=== PATIENT | male | born 1990 | race Caucasian/White ===

== ENCOUNTER → 2017-04-14 | Emergency (ER) | payer OTHER ==
[~2017-04-14] VITALS: Ht 185.4 cm; Wt 86.2 kg
[~2017-04-14] MED LIST: HUMALOG100 UNIT/1; LANTUS SOL100 UNIT/1
== END | disposition home or self-care (01) ==
LOC: ER 11:27
DX: S01.01XA Laceration without foreign body of scalp, initial encounter (principal); W45.8XXA Other foreign body or object entering through skin, initial encounter; Y93.89 Activity, other specified; Y92.89 Other specified places as the place of occurrence of the external cause; Y99.8 Other external cause status

== ENCOUNTER 2017-04-24 15:10 | Emergency (ER) | payer OTHER ==
[~2017-04-24] VITALS: Ht 185.4 cm; Wt 86.2 kg
== END 2017-04-24 16:52 | disposition home or self-care (01) ==
LOC: ER 15:10
DX: Z48.01 Encounter for change or removal of surgical wound dressing (principal)

== ENCOUNTER 2020-11-13 02:17 | Emergency (ER) | payer OTHER ==
[~2020-11-13] VITALS: Ht 185.4 cm; Wt 85.3 kg
[2020-11-13] MEDS ORDERED: DUI500 PO (04:40)
[2020-11-13] MEDS ORDERED: KETO10TA2 PO (04:40)
== END 2020-11-13 05:29 ==
LOC: ER 02:17
DX: S61.411A Laceration without foreign body of right hand, initial encounter (principal); W45.8XXA Other foreign body or object entering through skin, initial encounter; Y93.39 Activity, other involving climbing, rappelling and jumping off; Y92.018 Other place in single-family (private) house as the place of occurrence of the external cause; Y99.8 Other external cause status

== ENCOUNTER 2020-11-24 19:21 | Emergency (ER) | payer OTHER ==
[~2020-11-24] VITALS: Ht 185.4 cm; Wt 86.2 kg
[~2020-11-24 19:21] MED LIST changes: +DUI500 PO; +KETO10TA2 PO
== END 2020-11-24 20:34 | disposition home or self-care (01) ==
LOC: ER 19:21
DX: Z48.02 Encounter for removal of sutures (principal)